=== PATIENT | female | born 1970 | race Caucasian/White ===

== ENCOUNTER 2016-06-23 07:24 | Day surgery (SDC) | payer OTHER ==
[2016-06-19 10:32] VITALS: BMI 50.4
[~2016-06-23 07:24] MED LIST: DEXAMETHASONE SOD PHOSPHATE 10 MG/ML 1 ML VIAL IV ONE; HEPARIN SODIUM,PORCINE 5,000 UNIT/ML 1 ML VIAL SQ ONE; HYDROmorphone 1 MG/ML 1 ML SYRINGE IVP PRN; LACTATED RINGERS 1,000 ML IV SCH; MIDAZOLAM 2 MG/2 ML VIAL IV PRN; ONDANSETRON 4 MG/2 ML VIAL IVP ONE; Pre Op ABX Message 1 EACH MISC MISCELLANE ONE; SCOPOLAMINE 1.5MG/72HR PATCH TRANSDERM ONE
[2016-06-23] MEDS ORDERED: LIDOCAINE 1% 20 ML VIAL (10MG/ML) FOR IV START SQ ONE (07:54)
[2016-06-23 08:07] LABS: Glucose,Whole Blood 156 mg/dL (75-99)
[2016-06-23] MEDS ORDERED: HEPARIN SODIUM,PORCINE 5,000 UNIT/ML 1 ML VIAL SQ ONE (08:35)
--- NOTE | 2016-06-23 08:38 | P.PN ---
Progress Note - Text Patient's pathology on her FNA for her thyroid nodules was noted to be at [place] III. The patient's specimen was sent for gene testing and that on the right was suspicious. We will therefore removed the right lobe first. Patient understands that as long as we see well the anatomy of the recurrent laryngeal nerve and the parathyroids we will proceed with removal of the left lobe. She and her family understand the risks and benefits and wished to proceed.
[2016-06-23] MEDS ORDERED: KETAMINE 10 MG/ML 20 ML VIAL ONE (08:41)
[2016-06-23] MEDS ORDERED: LIDOCAINE 1% INJ 10MG/ML (20 ML MDV) ONE (08:41)
[2016-06-23] MEDS ORDERED: PROPOFOL 10 MG/ML 20 ML VIAL IV ONE (08:41)
[2016-06-23] MEDS ORDERED: SUCCINYLCHOLINE CHLORIDE 100 MG/5 ML SYR IV ONE (08:41)
[2016-06-23] MEDS ORDERED: MIDAZOLAM 2 MG/2 ML VIAL ONE (08:41)
[2016-06-23] MEDS ORDERED: fentaNYL (PF) 50 MCG/ML 2 ML AMP ONE (08:41)
[2016-06-23] MEDS ORDERED: LACTATED RINGERS 1,000 ML IV ONE ×3 (10:24→14:25)
[2016-06-23] MEDS ORDERED: NALOXONE 0.4 MG/ML 1 ML VIAL IV PRN (11:49)
[2016-06-23] MEDS ORDERED: ONDANSETRON 4 MG/2 ML VIAL IVP PRN (11:49)
[2016-06-23] MEDS ORDERED: HYDROmorphone 1 MG/ML 1 ML SYRINGE IV PRN (11:49)
--- NOTE | 2016-06-23 11:49 | P.OP ---
Date of Procedure: 06/23/16 Preoperative Diagnosis: Bilateral thyroid nodules right nodule suspicious on gene testing Postoperative Diagnosis: Same Procedure(s) Performed: Total thyroidectomy Anesthesia: JEANNE Surgeon: Kirsten Varela Jailor #1: Shila Castro Estimated Blood Loss (ml): 5 IV fluids (ml): 1,300 Pathology: other (Total thyroid) Condition: stable Disposition: PACU Indications for Procedure: Bilateral thyroid nodules, right thyroid nodule suspicious on chain testing, atypical cells noted bilaterally on FNA of thyroid nodules Operative Findings: Enlarged thyroid with bilateral thyroid nodules Description of Procedure: The patient is a 46-year-old white female who presented with bilateral thyroid nodules. The left was 3.0 cm that on the right is 1.7 cm the patient underwent an FNA of both nodules which revealed atypia. This was considered [place] class III. She then underwent gene testing which was suspicious on the left side. The case was discussed with Dr. Lalitha Morris and with the patient and it was determined that the patient should undergo a thyroid resection. The patient and her family understand the risks and benefits and wished to proceed. The patient was taken to the operating room and following induction of general anesthesia the patient was positioned in a beachchair position. The nerve stimulator probes were placed. The neck was prepped and draped in a sterile fashion. A collar incision was made and carried through the skin and subcutaneous tissue and the platysma. Superior and inferior skin flaps were developed. The strap muscles were in the midline. The right lobe of the thyroid was approached first. The strap muscles were dissected from the right lobe of the thyroid and the superior pole vessels were identified. Superior pole vessels were ligated and divided. Inferior pole vessels were then ligated and divided. The fland was adherent to the surrounding tissues and was carefully dissected free. Superior and inferior parathyroid glands were identified and preserved. We were careful to identify and preserve the recurrent laryngeal nerve. This was also confirmed using the nerve stimulator. The lobe was rotated up onto the trachea and across the midline of the trachea. Palpation of the right neck did not reveal any adenopathy of concern. The left lobe of the thyroid was approached. Superior pole vessels were identified and ligated. The inferior pole vessels were identified and ligated. The lobe was rotated medially being careful to identify and preserve the recurrent laryngeal nerve. The inferior parathyroid was identified and the area of the superior parathyroid was identified. We were not certain that the superior parathyroid on the left was well seen. Careful evaluation revealed that there was a small amount of tissue at the ligament of [place]ner and this was removed being careful to preserve the recurrent laryngeal nerve. Palpation in the left side of the neck did not reveal any adenopathy of concern. The lobe was rotated onto the trachea. The thyroid was then removed. The thyroid was marked for orientation. Was well irrigated. After assured that hemostasis was attained the strap muscles were closed in the midline. A [place] drain was left behind. The platysma was closed using 3-0 Vicryl suture. The deep subcutaneous tissues were closed using 3-0 Vicryl suture. The skin was closed using 4-0 Monocryl. The drain was secured using a nylon suture. Mastisol and Steri-Strips were applied. The patient tolerated the procedure in stable condition. All instrument and sponge counts were correct at the end of the case.
[2016-06-23] MEDS ORDERED: ceFAZolin 2,000 MG in DEXTROSE/WATER 1 50ML.BAG IVPB SCH (12:00)
[2016-06-23] MEDS ORDERED: METOCLOPRAMIDE 5 MG/ML 2 ML VIAL IVP ONE (13:04)
[2016-06-23] MEDS: hydrALAZINE HCL 20 MG/ML 1 ML VIAL IVP ONE ×2 (13:07→13:31)
[2016-06-23 14:04] LABS: Glucose,Whole Blood 241 mg/dL (75-99)
[2016-06-23] MEDS ORDERED: INSULIN LISPRO (humaLOG) 300 UNIT/3 ML VIAL SQ ONE (14:04)
[2016-06-23] MEDS ORDERED: DEXTROSE 5%-0.45% NACL 1,000 ML IV SCH (15:00)
[2016-06-23] MEDS: HEPARIN SODIUM,PORCINE 5,000 UNIT/ML 1 ML VIAL SQ SCH (18:25)
[2016-06-23] MEDS: CALCIUM CARB-VIT D 500MG-200UN 1 EACH TAB PO SCH (18:25)
[2016-06-23] MEDS: ceFAZolin 2 GM in SODIUM CHLORIDE 0.9% 100 ML IVPB SCH (19:25)
[2016-06-23 20:18] LABS: ALT 50 U/L (9-52); AST 30 U/L (14-36); Alkaline Phosphatase 62 U/L (38-126); Anion Gap 14 mmol/L; Blood Urea Nitrogen 15 mg/dL (7-17); Calcium 8.1 mg/dL (8.4-10.2); Carbon Dioxide 25 mmol/L (22-30); Chloride 99 mmol/L (98-107); Glucose 212 mg/dL (74-99); Magnesium 1.5 mg/dL (1.6-2.3); Non-African American GFR(MDRD) >60 (>60 ml/min/1.73 sqM); Potassium 3.8 mmol/L (3.5-5.1); Sodium 138 mmol/L (137-145); Total Bilirubin 0.6 mg/dL (0.2-1.3); Total Protein 7.1 g/dL (6.3-8.2)
[2016-06-23 21:05] LABS: Glucose,Whole Blood 203 mg/dL (75-99)
[2016-06-23] MEDS ORDERED: CALCIUM GLUCONATE 1,000 MG in SODIUM CHLORIDE 0.9% 100 ML IVPB ONE (21:30)
[2016-06-23] MEDS: INSULIN LISPRO (humaLOG) 300 UNIT/3 ML VIAL SQ SCH (21:52)
--- NOTE | 2016-06-23 22:22 | P.CONS ---
History of Present Illness - Reason for Consult Consult date: 06/23/16 Medical management Requesting physician: Kirsten Varela - Chief Complaint Post subtotal thyroidectomy, diabetes, vitamin D deficiency - History of Present Illness 46-year-old female one of Dr. Mendoza patient who started seen him recently with new diagnosis of diabetes type 2 has been on oral hypoglycemic agent, patient found to have thyroid nodular diagnosed by Dr. Mendoza and was referred to see Dr. Rankin. Fine-needle biopsy was done and showed suspicion for malignant cell. Patient was scheduled with Dr. Rankin for subtotal thyroidectomy which was done today successfully with no major complication. Patient developed to have slight neck pain with mild swallowing problem but no hoarseness and no hematoma or complication. Her blood sugar was mildly elevated patient has not taking her medication today but she will be on a sliding scales for now to cover her elevated blood sugar number. Review of Systems Constitutional: Reports fatigue, Reports malaise, Reports weakness, Reports weight gain, Denies as per HPI, Denies anorexia, Denies chills, Denies chronic headaches, Denies chronic pain, Denies daytime sleepiness, Denies fever, Denies lethargy, Denies night sweats, Denies poor appetite, Denies sweats, Denies weight loss Eyes: bilateral as per HPI Ears: deny: decreased hearing Ears, nose, mouth and throat: Reports mouth pain, Reports nasal discharge, Reports neck fullness/pressure, Reports neck lump, Denies as per HPI, Denies ant. neck pain, Denies bleeding gums, Denies dental pain, Denies dysphagia, Denies epistaxis, Denies headache, Denies hoarseness, Denies nasal congestion, Denies nose pain, Denies odynophagia, Denies post-nasal drip, Denies sinus pain , Denies sinus pressure, Denies swelling in mouth, Denies swelling in throat, Denies sore throat, Denies vertigo, Denies voice changes Cardiovascular: Reports decreased exercise tolerance, Reports edema, Denies as per HPI, Denies chest pain, Denies claudication, Denies dyspnea on exertion, Denies high blood pressure, Denies irregular heart beat, Denies leg edema, Denies lightheadedness, Denies orthopnea, Denies palpitations, Denies paroxysmal nocturnal dyspnea, Denies phlebitis, Denies rapid heart beat, Denies shortness of breath, Denies syncope Respiratory: Reports congestion, Denies as per HPI, Denies cough, Denies cough with sputum, Denies dyspnea, Denies excessive sputum, Denies hemoptysis, Denies home oxygen, Denies pain, Denies pain on inspiration, Denies pleurisy, Denies respiratory infections, Denies sleep apnea, Denies snoring, Denies wheezing Gastrointestinal: Reports bloating, Reports indigestion, Denies as per HPI, Denies abdominal pain, Denies belching, Denies BRBPR, Denies change in bowel habits, Denies coffee ground emesis, Denies constipation, Denies diarrhea, Denies dyspepsia, Denies early satiety, Denies excessive gas, Denies heartburn, Denies hematemesis, Denies hematochezia, Denies jaundice, Denies lactose intolerance, Denies loss of appetite, Denies melena, Denies nausea, Denies vomiting Genitourinary: Denies as per HPI, Denies abnormal vaginal bleeding, Denies decreased libido, Denies difficulty conceiving, Denies difficulty voiding, Denies dysmenorrhea, Denies dyspareunia, Denies dysuria, Denies flank pain, Denies genital sores, Denies hematuria, Denies hot flashes, Denies incomplete emptying, Denies kidney stones, Denies menorrhagia, Denies mixed incontinence, Denies nocturia, Denies pelvic pain, Denies post void dribbling, Denies , Denies prolapse symptoms, Denies stress incontinence, Denies urge incontinence , Denies urgency, Denies urinary frequency, Denies vaginal discharge, Denies vaginal dryness, Denies vaginal itching, Denies vaginal odor Musculoskeletal: Reports myalgias, Reports neck pain Integumentary: Denies as per HPI, Denies acne, Denies boils, Denies brittle nails, Denies change in hair/nails, Denies color changes, Denies darkening of skin, Denies depigmentation, Denies dryness, Denies foot/leg ulcers, Denies growths, Denies hirsutism, Denies lesions, Denies onychomycosis, Denies pruritus , Denies rash, Denies sores, Denies striae, Denies unusual bruising, Denies wounds Neurological: Denies as per HPI, Denies aphasia, Denies ataxia, Denies balance difficulties, Denies burning pain, Denies change in mentation, Denies change in smell/taste, Denies change in speech, Denies confusion, Denies convulsions, Denies double vision, Denies gait dysfunction, Denies head injury, Denies headaches, Denies hearing difficulties, Denies lack of coordination, Denies loss of vision, Denies memory loss, Denies migraines, Denies motor disturbance, Denies numbness, Denies paralysis, Denies paresthesias, Denies seizures, Denies sensory deficit, Denies spasticity, Denies syncope, Denies tic, Denies tingling , Denies transient paralysis, Denies tremors, Denies vertigo, Denies weakness, Denies visual changes Psychiatric: Reports anhedonia, Reports anxiety, Denies as per HPI, Denies anxiety attacks, Denies change in appetite, Denies change in libido, Denies change in sleep habits, Denies confusion, Denies depression, Denies difficulty concentrating, Denies disorientation, Denies hallucinations, Denies hopelessness , Denies hypersomnia, Denies insomnia, Denies irritability, Denies memory loss, Denies mood swings, Denies paranoia, Denies sadness/tearfulness, Denies sleep disturbances, Denies suicidal ideation Endocrine: Reports cold intolerance, Reports excessive thirst, Reports fatigue, Reports nocturia, Denies as per HPI, Denies deepening of the voice, Denies excessive sweating, Denies flushing, Denies heat intolerance, Denies high blood sugars, Denies increase in ring/shoe/hat size, Denies low blood sugars, Denies palpitations, Denies polydipsia, Denies polyphagia, Denies polyuria, Denies proptosis, Denies recent glucocorticoid use, Denies thyroid mass, Denies weight change Hematologic/Lymphatic: Denies as per HPI, Denies easy bleeding, Denies easy bruising, Denies lymphadenopathy, Denies lymphedema, Denies thrombophilia Allergic/Immunologic: Denies as per HPI, Denies allergic rhinitis, Denies anaphylaxis, Denies angioedema, Denies gluten intolerance, Denies persistent infections, Denies seasonal allergies, Denies urticaria, Denies wheezing Past Medical History Past Medical History: Diabetes Mellitus, Thyroid Disorder History of Any Multi-Drug Resistant Organisms: None Reported Additional Past Surgical History / Comment(s): 3 C-sections Past Anesthesia/Blood Transfusion Reactions: No Reported Reaction Past Psychological History: No Psychological Hx Reported Smoking Status: Never smoker Past Alcohol Use History: Occasional Past Drug Use History: None Reported - Past Family History Mother Family Medical History: No Reported History Medications and Allergies Home Medications Medication Instructions Recorded Confirmed Type Cholecalciferol [Vitamin D3] 2,000 unit PO DAILY@1200 06/19/16 06/23/16 History metFORMIN HCL [Glucophage] 500 mg PO BID 06/19/16 06/23/16 History Allergies Allergy/AdvReac Type Severity Reaction Status Date / Time No Known Allergies Allergy Verified 06/19/16 10:07 Physical Exam Vitals: Vital Signs Temp Pulse Pulse Pulse Resp BP Pulse Ox 06/23/16 19:00 107 H 20 132/83 94 L 06/23/16 17:45 111 H 20 140/80 93 L 06/23/16 16:45 108 H 20 139/80 91 L 06/23/16 16:15 105 H 20 136/84 91 L 06/23/16 15:45 107 H 20 135/77 95 06/23/16 15:30 105 H 20 145/83 06/23/16 15:15 107 H 20 150/56 93 L 06/23/16 15:00 98.0 F 100 20 136/81 93 L 06/23/16 14:15 96 16 126/60 95 06/23/16 13:45 97.2 F L 91 16 132/58 96 06/23/16 13:30 87 16 161/85 96 06/23/16 13:15 91 16 162/88 96 06/23/16 13:00 88 16 177/103 96 06/23/16 12:45 85 16 165/78 95 06/23/16 12:30 105 H 16 165/88 97 06/23/16 12:15 95 16 155/100 97 06/23/16 12:00 97.2 F L 84 16 144/94 97 06/23/16 07:40 98.5 F 69 16 182/97 97 Intake and Output 06/23/16 06/23/16 06/23/16 06:59 14:59 22:59 Intake Total 2125 Output Total 230 Balance 1895 Intake: IV 2124 Output: Urine 225 Estimated Blood Loss 5 - Constitutional General appearance: no average body habitus, no cooperative, no disheveled, no mild distress, no morbidly obese, no no acute distress, obese, no severe distress, no thin - EENT Eyes: no abnormal pupil, no anicteric sclerae, no disc margins sharp, no edentulous, no EOMI, no PERRLA, no fundus normal, no photophobia, no dentition normal, no poor dentition, no ptosis, no scleral icterus, normal appearance ENT: no hard of hearing, no hearing grossly normal, no NA/AT, normal oropharynx , no other, no pharyngeal erythema, no thrush, no tonsillar exudates, no tonsillar swelling Ears: bilateral: normal - Neck Scar from her thyroidectomy had very limited amount of bleeding on the dressing on the neck is very soft with no induration and redness or problem. Neck: no lymphadenopathy, normal ROM, no other, no rigidity, no stridor, no thyromegaly Carotids: bilateral: upstroke normal - Respiratory Respiratory: bilateral: CTA, diminished - Cardiovascular Rhythm: regular Heart sounds: normal: S1, S2 Abnormal Heart Sounds: systolic murmur - Gastrointestinal General gastrointestinal: no absent bowel sounds, no decreased bowel sounds, no distended, no hepatomegaly, no hyperactive bowel sounds, no normal bowel sounds , no organomegaly, no rigid, no scaphoid, soft, no splenomegaly, no tenderness, no umbilical hernia, no ventral hernia - Integumentary Integumentary: no calor, no cellulitis, no cyanotic, no decreased turgor, no flushed, no jaundiced, no normal, no normal turgor, pale, rash, no ulcer - Neurologic Neurologic: CNII-XII intact - Musculoskeletal Musculoskeletal: gait normal, generalized weakness, no strength equal bilaterally, no right sided weakness, no left sided weakness - Psychiatric Psychiatric: A&O x's 3, no appropriate affect, no intact judgment & insight Results CBC & Chem 7: 06/23/16 19:45 Labs: Abnormal Lab Results - Last 24 Hours (Table) 06/23/16 06/23/16 06/23/16 Range/Units 07:51 14:01 19:45 Glucose 212 H (74-99) mg/dL POC Glucose (mg/dL) 156 H 241 H (75-99) mg/dL Calcium 8.1 L (8.4-10.2) mg/dL Magnesium 1.5 L (1.6-2.3) mg/dL 06/23/16 Range/Units 21:01 Glucose (74-99) mg/dL POC Glucose (mg/dL) 203 H (75-99) mg/dL Calcium (8.4-10.2) mg/dL Magnesium (1.6-2.3) mg/dL Assessment and Plan Plan: 1 post subtotal thyroidectomy: Doing well, we monitor patient hemodynamic status carefully, patient thyroid level will be test in the next few weeks every 2 weeks and patient most likely will require thyroid replacement as a start in week or so if patient starts Synthroid at 50 g and does need to be adjusted based on her TSH and free T4 level in the next 2 weeks. 2 diabetes: Type II, patient will be placed back on her metformin 500 mg twice a day. Accu-Chek with sliding scales coverage and be done. 3 GERD/GI prophylaxis: Patient will be on Pepcid 20 mg daily. 4 vitamin D deficiency: Patient has been on supplement continue medication. 5 DVT prophylaxis: Patient will have Venodyne boots and early mobilization. 6 electrolyte imbalance: With hypomagnesemia, replacement therapy be done. 7 tachycardia: Most likely in connection with a thyroid surgery will watch pulse rate afterward. CODE STATUS: Full code. Dr. Rankin thank you very much for the consult if I can be any further help to please let me know.
[2016-06-24] MEDS: HEPARIN SODIUM,PORCINE 5,000 UNIT/ML 1 ML VIAL SQ SCH ×2 (01:01→08:54)
[2016-06-24] MEDS: ceFAZolin 2 GM in SODIUM CHLORIDE 0.9% 100 ML IVPB SCH ×2 (01:01→06:45)
[2016-06-24 07:10] LABS: ALT 41 U/L (9-52); AST 22 U/L (14-36); Alkaline Phosphatase 62 U/L (38-126); Anion Gap 12 mmol/L; Blood Urea Nitrogen 14 mg/dL (7-17); Calcium 8.7 mg/dL (8.4-10.2); Carbon Dioxide 26 mmol/L (22-30); Chloride 104 mmol/L (98-107); Glucose 174 mg/dL (74-99); Magnesium 1.6 mg/dL (1.6-2.3); Non-African American GFR(MDRD) >60 (>60 ml/min/1.73 sqM); Phosphorous 4.8 mg/dL (2.5-4.5); Potassium 3.9 mmol/L (3.5-5.1); Sodium 142 mmol/L (137-145); Total Bilirubin 0.6 mg/dL (0.2-1.3); Total Protein 6.9 g/dL (6.3-8.2)
[2016-06-24 07:39] LABS: Glucose,Whole Blood 166 mg/dL (75-99)
[2016-06-24] MEDS: CALCIUM CARB-VIT D 500MG-200UN 1 EACH TAB PO SCH (08:52)
[2016-06-24] MEDS: INSULIN LISPRO (humaLOG) 300 UNIT/3 ML VIAL SQ SCH (08:52)
[2016-06-24] MEDS ORDERED: PANTOPRAZOLE 40 MG/10 ML VIAL IV SCH (09:00)
[2016-06-24] MEDS ORDERED: metFORMIN 500 MG TAB PO SCH (12:00)
[2016-06-24 12:28] LABS: Glucose,Whole Blood 166 mg/dL (75-99)
--- NOTE | 2016-06-24 12:32 | P.CNEND ---
History of Present Illness Consult date: 06/23/16 Consult reason: Abnormal blood calcium (S/P total thyroidectomy) History of present illness: 46-year-old female who has history of multinodular goiter. She had total thyroidectomy done yesterday. Prior to her surgery patient had thyroid biopsy which was consistent with suspicious for thyroid cancer. Patient is recovering from surgery well. No hoarseness of voice. No history of numbness tingling or muscle cramps. No previous history of parathyroid disorders. Patient is able to speak a swallow liquids without any problems Review of Systems All systems: negative Constitutional: Denies chills, Denies fever Eyes: denies blurred vision, denies pain Cardiovascular: Denies chest pain, Denies shortness of breath Respiratory: Denies cough Gastrointestinal: Denies abdominal pain, Denies diarrhea, Denies nausea, Denies vomiting Genitourinary: Denies dysuria, Denies hematuria Musculoskeletal: Denies myalgias Neurological: Denies numbness, Denies weakness Endocrine: Denies fatigue, Denies weight change Past Medical History Past Medical History: Diabetes Mellitus, Thyroid Disorder History of Any Multi-Drug Resistant Organisms: None Reported Additional Past Surgical History / Comment(s): 3 C-sections Past Anesthesia/Blood Transfusion Reactions: No Reported Reaction Past Psychological History: No Psychological Hx Reported Smoking Status: Never smoker Past Alcohol Use History: Occasional Past Drug Use History: None Reported - Past Family History Mother Family Medical History: No Reported History Medications and Allergies Home Medications Medication Instructions Recorded Confirmed Type Cholecalciferol [Vitamin D3] 2,000 unit PO DAILY@1200 06/19/16 06/23/16 History metFORMIN HCL [Glucophage] 500 mg PO BID 06/19/16 06/23/16 History Allergies Allergy/AdvReac Type Severity Reaction Status Date / Time No Known Allergies Allergy Verified 06/19/16 10:07 Physical Exam Vitals: Vital Signs Temp Pulse Pulse Pulse Resp BP Pulse Ox 06/24/16 08:35 87 20 138/78 94 L 06/24/16 04:45 98.7 F 100 16 149/90 93 L 06/24/16 01:11 98.7 F 106 H 18 121/72 93 L 06/23/16 21:00 98.9 F 109 H 20 139/76 93 L 06/23/16 19:00 107 H 20 132/83 94 L 06/23/16 17:45 111 H 20 140/80 93 L 06/23/16 16:45 108 H 20 139/80 91 L 06/23/16 16:15 105 H 20 136/84 91 L 06/23/16 15:45 107 H 20 135/77 95 06/23/16 15:30 105 H 20 145/83 06/23/16 15:15 107 H 20 150/56 93 L 06/23/16 15:00 98.0 F 100 20 136/81 93 L 06/23/16 14:15 96 16 126/60 95 06/23/16 13:45 97.2 F L 91 16 132/58 96 06/23/16 13:30 87 16 161/85 96 06/23/16 13:15 91 16 162/88 96 06/23/16 13:00 88 16 177/103 96 06/23/16 12:45 85 16 165/78 95 06/23/16 12:30 105 H 16 165/88 97 Intake and Output 06/23/16 06/24/16 06/24/16 22:59 06:59 14:59 Other: # Voids 1 1 - Constitutional General appearance: no acute distress - Respiratory Respiratory: bilateral: CTA - Cardiovascular Heart sounds: normal: S1, S2 - Gastrointestinal General gastrointestinal: no organomegaly, soft, no tenderness - Neurologic Neurologic: CNII-XII intact, focal deficits - Psychiatric Psychiatric: A&O x's 3, appropriate affect, intact judgment & insight Results - Labs Result Diagrams: 06/24/16 06:21 Abnormal Lab Results - Last 24 Hours (Table) 06/23/16 06/23/16 06/23/16 Range/Units 14:01 19:45 19:45 Glucose 212 H (74-99) mg/dL POC Glucose (mg/dL) 241 H (75-99) mg/dL Calcium 8.1 L (8.4-10.2) mg/dL Phosphorus (2.5-4.5) mg/dL Magnesium 1.5 L (1.6-2.3) mg/dL Vitamin D 25-Hydroxy 21.8 L (30.0-100.0) ng/mL 06/23/16 06/24/16 06/24/16 Range/Units 21:01 06:21 07:36 Glucose 174 H (74-99) mg/dL POC Glucose (mg/dL) 203 H 166 H (75-99) mg/dL Calcium (8.4-10.2) mg/dL Phosphorus 4.8 H (2.5-4.5) mg/dL Magnesium (1.6-2.3) mg/dL Vitamin D 25-Hydroxy (30.0-100.0) ng/mL Diabetes panel 06/23/16 06/23/16 06/24/16 Range/Units 12:56 19:45 00:53 Sodium 138 (137-145) mmol/L Potassium 3.8 (3.5-5.1) mmol/L Chloride 99 (98-107) mmol/L Carbon Dioxide 25 (22-30) mmol/L BUN 15 (7-17) mg/dL Creatinine 0.64 (0.52-1.04) mg/dL Glucose 212 H (74-99) mg/dL Calcium 8.7 8.1 L 8.7 (8.4-10.2) mg/dL AST 30 (14-36) U/L ALT 50 (9-52) U/L Alkaline Phosphatase 62 (38-126) U/L Total Protein 7.1 (6.3-8.2) g/dL Albumin 3.9 (3.5-5.0) g/dL 06/24/16 Range/Units 06:21 Sodium 142 (137-145) mmol/L Potassium 3.9 (3.5-5.1) mmol/L Chloride 104 (98-107) mmol/L Carbon Dioxide 26 (22-30) mmol/L BUN 14 (7-17) mg/dL Creatinine 0.66 (0.52-1.04) mg/dL Glucose 174 H (74-99) mg/dL Calcium 8.7 (8.4-10.2) mg/dL AST 22 (14-36) U/L ALT 41 (9-52) U/L Alkaline Phosphatase 62 (38-126) U/L Total Protein 6.9 (6.3-8.2) g/dL Albumin 3.6 (3.5-5.0) g/dL Calcium panel 06/23/16 06/23/16 06/24/16 Range/Units 12:56 19:45 00:53 Calcium 8.7 8.1 L 8.7 (8.4-10.2) mg/dL Phosphorus (2.5-4.5) mg/dL Albumin 3.9 (3.5-5.0) g/dL 06/24/16 Range/Units 06:21 Calcium 8.7 (8.4-10.2) mg/dL Phosphorus 4.8 H (2.5-4.5) mg/dL Albumin 3.6 (3.5-5.0) g/dL Pituitary panel 06/23/16 06/23/16 06/24/16 Range/Units 12:56 19:45 00:53 Sodium 138 (137-145) mmol/L Potassium 3.8 (3.5-5.1) mmol/L Chloride 99 (98-107) mmol/L Carbon Dioxide 25 (22-30) mmol/L BUN 15 (7-17) mg/dL Creatinine 0.64 (0.52-1.04) mg/dL Glucose 212 H (74-99) mg/dL Calcium 8.7 8.1 L 8.7 (8.4-10.2) mg/dL 06/24/16 Range/Units 06:21 Sodium 142 (137-145) mmol/L Potassium 3.9 (3.5-5.1) mmol/L Chloride 104 (98-107) mmol/L Carbon Dioxide 26 (22-30) mmol/L BUN 14 (7-17) mg/dL Creatinine 0.66 (0.52-1.04) mg/dL Glucose 174 H (74-99) mg/dL Calcium 8.7 (8.4-10.2) mg/dL Adrenal panel 06/23/16 06/23/16 06/24/16 Range/Units 12:56 19:45 00:53 Sodium 138 (137-145) mmol/L Potassium 3.8 (3.5-5.1) mmol/L Chloride 99 (98-107) mmol/L Carbon Dioxide 25 (22-30) mmol/L BUN 15 (7-17) mg/dL Creatinine 0.64 (0.52-1.04) mg/dL Glucose 212 H (74-99) mg/dL Calcium 8.7 8.1 L 8.7 (8.4-10.2) mg/dL Total Bilirubin 0.6 (0.2-1.3) mg/dL AST 30 (14-36) U/L ALT 50 (9-52) U/L Alkaline Phosphatase 62 (38-126) U/L Total Protein 7.1 (6.3-8.2) g/dL Albumin 3.9 (3.5-5.0) g/dL 06/24/16 Range/Units 06:21 Sodium 142 (137-145) mmol/L Potassium 3.9 (3.5-5.1) mmol/L Chloride 104 (98-107) mmol/L Carbon Dioxide 26 (22-30) mmol/L BUN 14 (7-17) mg/dL Creatinine 0.66 (0.52-1.04) mg/dL Glucose 174 H (74-99) mg/dL Calcium 8.7 (8.4-10.2) mg/dL Total Bilirubin 0.6 (0.2-1.3) mg/dL AST 22 (14-36) U/L ALT 41 (9-52) U/L Alkaline Phosphatase 62 (38-126) U/L Total Protein 6.9 (6.3-8.2) g/dL Albumin 3.6 (3.5-5.0) g/dL Assessment and Plan (1) Multinodular goiter (nontoxic) Narrative/Plan: Patient is status post complete thyroidectomy. She has history of multinodular goiter with biopsy suspicious for thyroid cancer. Patient's calcium level decreased however stated normal after total thyroidectomy. No symptoms of hypocalcemia No hoarseness of voice Follow-up in outpatient in 1-2 weeks check TSH and free T4 in 1 week We will follow-up on surgical pathology We'll start patient on Cytomel in 1-2 weeks Status: Acute (2) Status post complete thyroidectomy Status: Acute (3) Hypocalcemia Status: Acute Time with Patient: Greater than 30
--- NOTE | 2016-06-24 12:48 | P.DS ---
Providers Expected date of discharge: 06/24/16 Attending physician: Kirsten Varela Consults: 06/23/16 11:52 Consult Physician Routine Consulting Provider: Marta Carvalho Consult Reason/Comments: Patient status post total thyroidectomy Do you want consulting provider notified?: Yes Consult Physician Routine Consulting Provider: Damien Cortez Consult Reason/Comments: Medical management Do you want consulting provider notified?: Yes Primary care physician: 46-year-old female whose primary care providers Dr. Mendoza who has been newly diagnosed with type 2 diabetes on oral hypoglycemic agent. Was found to have a thyroid nodule diagnosed by was referred to Dr. Peyton Wood. Dr. Rankin did see patient and recommended fine-needle biopsy be done which did show suspicion for malignant cells .pathology on her FNA for her thyroid nodules was noted to be at [place] [facility]. The patient's specimen was sent for gene testing and that on the right was suspicious. therefore removed the right lobe first. Patient understands that as long as we see well the anatomy of the recurrent laryngeal nerve and the parathyroids we will proceed with removal of the left lobe. She and her family understand the risks and benefits and wished to proceed. Patient did undergo a sub-total thyroidectomy on the per Dr. Rankin. Postop the blood sugars were mildly elevated patient was not her taking medication this was monitored while hospitalized. A sliding scale was initiated to cover the blood sugars. Hemoglobin A1c was drawn but was pending. Postop patient was seen by Dr. Carvalho endocrinology. Diabetic education was initiated as well. On the day of discharge patient seen by Dr. Rankin. From a surgical perspective patient was felt to be appropriate to be discharged home after seen by endocrinology service the patient's calcium level was 8.7 on the day of discharge blood sugars were ranging 166-200 patient was afebrile vitamin D 25.8 Impression discharge diagnosis Newly diagnosed type 2 diabetes oral hypoglycemic agents non-insulin Bilateral thyroid nodules right nodule suspicious on gene testing Enlarged thyroid with bilateral thyroid nodules with a Total thyroidectomy done on the June 23 2016 Total thyroidectomy done on 06/23/2016 due to Bilateral thyroid nodules, right thyroid nodule suspicious on chain testing, atypical cells noted bilaterally on FNA of thyroid nodules Morbid obesity BMI 50.5 The above dictated assessment and findings were discussed with Dr. Nan Rankin. Impression and the plan of care have been dictated as directed. Viktoriya Shaw nurse practitioner acting as a scribe for Dr. Mcclelland Plan - Discharge Summary New Discharge Prescriptions: Levothyroxine Sodium [Levoxyl] 50 mcg PO DAILY #30 tab Discharge Medication List Cholecalciferol [Vitamin D3] 2,000 unit PO DAILY@1200 06/19/16 [History] metFORMIN HCL [Glucophage] 500 mg PO BID 06/19/16 [History] Calcium Carb-Vit D 500Mg-200Un [Oscal 500+D] 2 each PO BID-W/MEALS tab [Rx] Follow up Appointment(s)/Referral(s): Kirsten Varela MD [STAFF PHYSICIAN] - 1 Week Lauro Mendoza MD [REFERRING] - 1 Week Marta Carvalho MD [STAFF PHYSICIAN] - 1 Week Activity/Diet/Wound Care/Special Instructions: Dr. Carvalho retail store associate indicated the patient did not need to be on thyroid supplements Discharge Disposition: HOME SELF-CARE
[2016-06-24 13:13] LABS: Hemoglobin A1C 7.1 % (4.2-6.1)
[2016-06-24 13:45] VITALS: BP 160/92; PULSE 90; RESP 16; TEMP 98.1
--- NOTE | 2016-06-24 15:06 | P.PN ---
Subjective Principal diagnosis: Post subtotal thyroidectomy, diabetes, vitamin D deficiency, hypothyroidism. 46-year-old female one of Dr. Mendoza patient who started seen him recently with new diagnosis of diabetes type 2 has been on oral hypoglycemic agent, patient found to have thyroid nodular diagnosed by Dr. Mendoza and was referred to see Dr. Rankin. Fine-needle biopsy was done and showed suspicion for malignant cell. Patient was scheduled with Dr. Rankin for subtotal thyroidectomy which was done today successfully with no major complication. Patient developed to have slight neck pain with mild swallowing problem but no hoarseness and no hematoma or complication. Her blood sugar was mildly elevated patient has not taking her medication today but she will be on a sliding scales for now to cover her elevated blood sugar number. Patient has done very well since yesterday her blood sugar was mildly elevated still on sliding scales coverage and back on her metformin today. If blood sugar does not improve over the next few days patient should be switched to Janumet which will combine Januvia and metformin for better control. Also patient be seen Dr. Carvalho endocrinology and will be seen clinical nurse educator. Objective - Vital Signs Vital signs: Vital Signs Temp 98.1 F 06/24/16 12:10 Pulse 90 06/24/16 12:10 Resp 16 06/24/16 12:10 BP 160/92 06/24/16 12:10 Pulse Ox 95 06/24/16 12:10 Intake & Output 06/23/16 06/24/16 06/24/16 18:59 06:59 18:59 Intake Total 2125 Output Total 230 Balance 1895 Intake: IV 2125 Output: Urine 225 Estimated Blood Loss 5 Other: # Voids 1 - Constitutional General appearance: Present: cooperative, no acute distress, obese. Absent: average body habitus, disheveled, mild distress, morbidly obese, severe distress , thin - EENT EENT Comment(s): Incision in the neck looks fine with no hemorrhage induration or infection. Eyes: Present: normal appearance. Absent: abnormal pupil, anicteric sclerae, disc margins sharp, edentulous, EOMI, PERRLA, fundus normal, photophobia, dentition normal, poor dentition, ptosis, scleral icterus ENT: Absent: hard of hearing, hearing grossly normal, NA/AT, normal oropharynx, other, pharyngeal erythema, thrush, tonsillar exudates, tonsillar swelling Ears: bilateral: normal - Neck Details: Incision from thyroidectomy looks fine with no hemorrhage or bleeding. Neck: Present: normal ROM. Absent: lymphadenopathy, other, rigidity, stridor, thyromegaly Carotids: bilateral: upstroke normal, upstroke delayed, upstroke diminished - Respiratory Respiratory: bilateral: CTA, diminished - Cardiovascular Rhythm: regular Heart sounds: normal: S1, S2 Abnormal Heart Sounds: Present: systolic murmur - Gastrointestinal General gastrointestinal: Present: decreased bowel sounds, normal bowel sounds, soft. Absent: absent bowel sounds, distended, hepatomegaly, hyperactive bowel sounds, organomegaly, rigid, scaphoid, splenomegaly, tenderness, umbilical hernia, ventral hernia - Integumentary Integumentary: Present: normal, pale, rash. Absent: calor, cellulitis, cyanotic , decreased turgor, flushed, jaundiced, normal turgor, ulcer - Neurologic Neurologic: Present: CNII-XII intact. Absent: focal deficits - Musculoskeletal Musculoskeletal: Present: gait normal, generalized weakness, strength equal bilaterally. Absent: right sided weakness, left sided weakness - Psychiatric Psychiatric: Present: A&O x's 3, appropriate affect - Labs CBC & Chem 7: 06/24/16 06:21 Labs: Abnormal Lab Results - Last 24 Hours (Table) 06/23/16 06/23/16 06/23/16 Range/Units 19:45 19:45 21:01 Glucose 212 H (74-99) mg/dL POC Glucose (mg/dL) 203 H (75-99) mg/dL Hemoglobin A1c (4.2-6.1) % Calcium 8.1 L (8.4-10.2) mg/dL Phosphorus (2.5-4.5) mg/dL Magnesium 1.5 L (1.6-2.3) mg/dL Vitamin D 25-Hydroxy 21.8 L (30.0-100.0) ng/mL 06/24/16 06/24/16 06/24/16 Range/Units 06:21 06:21 07:36 Glucose 174 H (74-99) mg/dL POC Glucose (mg/dL) 166 H (75-99) mg/dL Hemoglobin A1c 7.1 H (4.2-6.1) % Calcium (8.4-10.2) mg/dL Phosphorus 4.8 H (2.5-4.5) mg/dL Magnesium (1.6-2.3) mg/dL Vitamin D 25-Hydroxy (30.0-100.0) ng/mL 06/24/16 Range/Units 12:18 Glucose (74-99) mg/dL POC Glucose (mg/dL) 166 H (75-99) mg/dL Hemoglobin A1c (4.2-6.1) % Calcium (8.4-10.2) mg/dL Phosphorus (2.5-4.5) mg/dL Magnesium (1.6-2.3) mg/dL Vitamin D 25-Hydroxy (30.0-100.0) ng/mL Assessment and Plan Plan: 1 post subtotal thyroidectomy: Doing well, we monitor patient hemodynamic status carefully, patient thyroid level will be test in the next few weeks every 2 weeks and patient most likely will require thyroid replacement as a start in week or so if patient starts Synthroid at 50 g and does need to be adjusted based on her TSH and free T4 level in the next [address] Carvalho replacement patient might be on Synthroid 50 g till testing are done as an outpatient. 2 diabetes: Type II, patient will be placed back on her metformin 500 mg twice a day. Accu-Chek with sliding scales coverage and be done. With her sugar remain elevated will be magallanes probably to switch patient to general metastases 50 /500 mg twice a day recommendation will be left up to Dr. Vaughan to make this change as an outpatient. 3 GERD/GI prophylaxis: Patient will be on Pepcid 20 mg daily. 4 vitamin D deficiency: Patient has been on supplement continue medication. 5 DVT prophylaxis: Patient will have Venodyne boots and early mobilization. 6 electrolyte imbalance: With hypomagnesemia, replacement therapy be done. 7 tachycardia: Most likely in connection with a thyroid surgery will watch pulse rate afterward. CODE STATUS: Full code. Discharge planning: Patient be discharged home today.
[2016-06-25] MEDS ORDERED: PANTOPRAZOLE 40 MG TABLET PO SCH (07:30)
== END 2016-06-24 15:01 | disposition home or self-care (01) ==
LOC: OR 07:24 → 6PED 12:00 → OR 06-24 15:01
PROVIDERS: ATTEND Surgery
DX: E04.2 Nontoxic multinodular goiter (principal); E06.3 Autoimmune thyroiditis; E11.9 Type 2 diabetes mellitus without complications; E66.01 Morbid (severe) obesity due to excess calories; Z68.43 Body mass index [BMI] 50.0-59.9, adult; E83.51 Hypocalcemia; K21.9 Gastro-esophageal reflux disease without esophagitis; E83.42 Hypomagnesemia; Z79.84 Long term (current) use of oral hypoglycemic drugs; Z79.899 Other long term (current) drug therapy
CPT/HCPCS: 60240; 81025; 88305; 80053 ×2; 82310 ×2; 83036; 83735 ×2; 84100; 88307; 82306; 83970; J2250; J0360; J1644 ×2; J1100; J2765; J0690 ×3; J2405; J2001; J3010; J0330; J2704; C9113

== ENCOUNTER → 2016-07-08 | Outpatient (CLI) | payer OTHER | END | disposition home or self-care (01) | LOC: LABWHC1 11:27 | PROVIDERS: ATTEND Internal Medicine Endocrinology, Diabetes & Metabolism | DX: E04.1 Nontoxic single thyroid nodule (principal) | CPT/HCPCS: 36415; 84443 ==

== ENCOUNTER → 2023-07-30 | Outpatient (CLI) | payer BC ==
--- NOTE | 2023-08-04 07:00 | MM ---
Reason for Exam: Screening (asymptomatic). Baseline mammogram. Patient History: Menarche at age 16. First Full-Term at age 29. Patient has history of breast feeding. Last menstrual period: 07/09/2023 Risk Values: Linda 5 year model risk: 1.0%. NCI Lifetime model risk: 8.9%. Prior Study Comparison: Patient's first Mammogram. Tissue Density: There are scattered areas of fibroglandular density. Findings: There is slightly greater parenchymal tissue in the upper outer right breast compared to the left. Focal asymmetry is in the posterior upper outer right breast 9:00 position. No suspicious groups of microcalcifications, spiculated or lobular masses, architectural distortion or other secondary signs of malignancy are mammographically apparent. Overall Assessment: Benign, BI-RAD 2 Management: Screening Mammogram of both breasts in 1 year. A negative mammogram report should not preclude additional follow up of suspicious palpable abnormalities. Patient should continue monthly self breast exam. A clinical breast exam by your physician is recommended on an annual basis and results should be correlated with mammographic findings. Electronically signed and approved by: Johnny Celis D.O. Radiologis
== END | disposition home or self-care (01) ==
LOC: RADMAMWWP 13:53
PROVIDERS: ATTEND Internal Medicine
DX: Z12.31 Encounter for screening mammogram for malignant neoplasm of breast (principal)
CPT/HCPCS: 77067